=== PATIENT | male | born 1955 | race Hispanic/Latino ===

== ENCOUNTER 2024-01-14 14:46 | Observation (INO) | payer MEDICARE, OTHER, SELFPAY ==
[2024-01-14] VITALS (12 sets, daily range): BP systolic 140–196; BP diastolic 28–83; BMI 28.0
--- NOTE | 2024-01-14 10:28 | ED.GENMED ---
History of Present Illness
General
Chief Complaint: Headache
Source: patient and family
Exam Limitations: clinical condition
Time Seen by Provider: 01/14/24 10:13
Nursing documentation reviewed up to this point in time: agreed with
Travel History
Have you had any contact with someone who has COVID-19?: No
Do you have any symptoms of coronavirus? Fever > 100 degrees, chills, cough, shortness of breath, sore throat, loss of taste or smell, muscle aches, or headache?: No
History of Present Illness
History of Present Illness:
pt is a 68 y/o M with h/o valve replacement, cva with residual R facial droop and some dysarthria baseline, legally blind due to diabetic retinopathy
here with onset of mild headache around left eye and dizziness like the room is spinning that started this morning at 6 am when he woke up
the headache is 1/10. he did not take anything for it. he got up and tried to find the bathroom but looked disoriented. he can usuallyjust feel around (becuase of his blindness) and he gets around without a cane or a walker. but he was reaching
and seemingly dioriented which is unsual for him. he did feel nauseated and vomited on the way here in the car.
has not taken his meds today
cannot see anything chronically from L eye which is usually cloudy in appearance.
he has not had any numbness/tkingling/weakness to arms or legs, cp, sob, cough, fever, cold sypmtoms, neck stiffness, confusion.
pt takes eliquis
Past History
Past History
ED Past Medical History: CVA, HTN, Hypercholesterolemia and NIDDM
Social History
Tobacco: Non-smoker
Alcohol: None
Drug: None
Personal:
Living: with family
Review of Systems
Review of Systems
Allergies reviewed?: Yes
All Other Systems: Not applicable
Phy Exam
Physical Exam
Physical Exam:
GENERAL: Alert , in no apparent distress
HEAD: NCAT
RIGHT SIDED FACIAL DROOP, SOME SLURRED SPEECH
EYE: r pupil 3 mm reactive; left cornea very cloudy unable to visualize pupil
blind left eye
right eye with ability to see light only
NECK: Supple,full rom, nontender
ENT: o/p clr, mmm.
CARDIAC: Regular rate and rhythm . no edema
LUNGS: Clear breath sounds bilaterally, no acute respiratory distress, no wheezes/rales/rhonchi
ABDOMEN: Soft, without focal tenderness, no r/g, no cvat
NEUROLOGICAL: Alert and orientedx 4, R facial droop, some speech dysarhtira, 5/5 strength in UE/LE, sensation intact, romberg neg, neg pronator drift
SKIN: Warm and dry, skin intact.
MUSCULOSKELETAL: No edema, well perfused.
PSYCH: Normal and appropriate interaction.
Course
Orders/Labs/Results
Orders:
Orders
01/14/24 10:26
Electrocardiogram (*1) Urgent
Reason for Study: Vertigo / Dizzy
EKG- Treatment ONCE
0.9% Sodium Chloride 500 ml [Nss] 500 ml IV BOLUS
Metoclopramide [Reglan] 10 mg IV NOW STA
01/14/24 10:27
Meclizine [Antivert] 25 mg PO NOW STA
01/14/24 10:39
COVID-19 Antigen Urgent
Source: Nasal Swab
Complete Blood Count/With Diff Urgent
Comprehensive Metabolic Panel Urgent
01/14/24 11:11
CT Head W/o Iv Contrast Urgent
Comment:
Reason For Exam: left sided headache, dizziness, h/o cva;
Abnormal Lab Results
01/14/24
10:39
RBC 3.20 L 10^6/uL
(4.70-6.10)
Hgb 9.7 L g/dL
(13.0-18.0)
Hct 29.0 L %
(39.0-52.0)
MPV 11.7 H fL
(7.4-10.4)
BUN 56 H mg/dl
(9-20)
Creatinine 3.7 H mg/dL
(0.7-1.3)
Glucose 148 H mg/dl
(70-99)
01/14/24 10:39
01/14/24 10:39
Vital Signs
Initial and Last Documented VS:
Initial Vital Signs
Temp Pulse Resp BP Pulse Ox
98.8 F 60 17 196/60 99
01/14/24 10:01 01/14/24 10:01 01/14/24 10:01 01/14/24 10:01 01/14/24 10:01
Last Documented Vital Signs
Temp Pulse Resp BP Pulse Ox
98.8 F 66 16 155/54 98
01/14/24 10:01 01/14/24 12:45 01/14/24 12:45 01/14/24 12:05 01/14/24 12:45
MDM/Problems Addressed
Differential Diagnosis Includes:
vertigo, stroke, dissection
MDM/Problems Addressed:
68 y/oM from home; h/o cva r facial droop chronic, valve replacement on , ckd (cr 3), diabetic retinopathy and blind; here with onset of L sided headache adn room spinning dizziness this morning, vomit x 1; headache very mild but the
dizziness caused him to be ataxic, normaly he walks without walker, feels around for structures and doesn't need help but today was very disorieneted and ataxic;
questionnable nystagmus on exam, because of his blindness it really is difficult; R facial droop and some slurred speech but no other deficits; was hypertensive on arrival 170/80, ekg sinus; ct head shows small lacunar infarct thalamus; no bleed;
givne reglan and meclizine and pt is still unable to walk; neuro consulted - she did not believe that mri was necessary at this point but will cconsult.
*Critical Care Note
Total Time (30-74mins, 75-104mins- exclusive of procedures): Not Applicable
ED Attending Note
-
Portions of this chart may have been created with voice recognition software.� Occasional wrong word or��sound alike� substitutions may have occurred due to the inherent limitations of voice recognition software.
Discharge Plan
Departure
Patient Disposition: Admit
Date of Disposition: 01/14/24
Time of Disposition: 13:07
Admit to: Telemetry
Presentation/result/management discussed w/ accepting MD/DO: Hospitalist
Condition: Fair
Covid-19: Not Applicable
Discharge Problem:
Vertigo, Ataxia
Referrals:
Mari Velázquez MD [Family Provider] -
Interventions
Interventions:
*Risk Screen - Suicide Last Done: 01/14/24 11:03
*General Assessment Last Done: 01/14/24 11:01
*Neglect/Abuse Screening Last Done: 01/14/24 11:01
ED- Fall Risk Assessment Last Done: 01/14/24 11:13
*ED COVID-19 Vaccine History Last Done: 01/14/24 11:01
ED- Neurological Assessment Last Done: 01/14/24 11:13
[2024-01-14 10:48] LABS: % Basophils 0.4 % (0-2); % Immature Granulocytes 0.3 % (0-0.5); % Lymphocytes 21.7 % (20.5-51.1); % Monocytes 7.5 % (1.7-9.3); % Neutrophils 69.1 % (42.2-75.2); Absolute Eosinophils 0.1 10^3/uL (0-0.7); Absolute Lymphocytes 1.5 10^3/uL (1.2-3.4); Absolute Monocytes 0.5 10^3/uL (0.1-0.6); Absolute Neutrophils 4.8 10^3/uL (1.4-6.5); Hemoglobin 9.7 g/dL (13.0-18.0); Mean Corp Hgb Conc. 33.4 g/dL (33.0-37.0); Mean Corpuscular Hgb 30.3 pg (27.0-31.0); Mean Corpuscular Volume 90.6 fL (80.0-94.0); Mean Platelet Volume 11.7 fL (7.4-10.4); Nucleated Red Blood Cells % 0 % (-); Platelet Count 164 10^3/uL (130-400); Red Cell Dist. Width 13.6 % (11.5-14.5); White Blood Cell Count 6.9 10^3/uL (4.8-10.8)
[2024-01-14] MEDS: NSS 500 IV (10:51)
[2024-01-14] MEDS: REGLAN 10 MG IV (10:52)
[2024-01-14] MEDS: ANTIVERT 25 MG PO (10:52)
[2024-01-14 11:00] LABS: ALT (SGPT) 29 U/L (0-50); AST (SGOT) 29 U/L (17-59); Alkaline Phosphatase 68 U/L (38-126); Blood Urea Nitrogen 56 mg/dl (9-20); Carbon Dioxide 24 mmol/L (22-30); Chloride 106 mmol/L (98-107); Glucose 148 mg/dl (70-99); Potassium 3.8 mmol/L (3.5-5.1); Sodium 138 mmol/L (135-145); Total Bilirubin 0.8 mg/dl (0.2-1.3); Total Protein 6.8 g/dl (6.3-8.2); eGFR 17.16
[2024-01-14 11:07] LABS: COVID-19 Antigen Negative (Negative)
--- NOTE | 2024-01-14 13:41 | HPS.HSE ---
Family Physician
-
Family Physician: Mari Velázquez
Chief Complaint
-
dizziness, ataxia
History of Present Illness
The patient is a 68 yo male with PMH significant for prior stroke with residual right-sided facial droop, mitral valve repair annuloplasty 2016, on Eliquis and amiodarone, CKD stage 5, DM with retinopathy and blindness (now diet-controlled after
signficant weight loss per family), who presents to ED via car due to left-sided MENDOZA and dizziness, sensation of lower extremity weakness, inability to ambulate, room spinning this morning, felt like he could not stand up, started 6 am when he woke
up, MENDOZA 11/01 (currently improved after txt in ED), could not find bathroom due to disoriented, vomit x 1. Typically he gets around by feeling around, not using cane nor walker, blindness due to DM, left eye cloudy vision chronically. No CP, no SOB,
no LOC, no syncope, no numbness nor tingling, no other motor deficits. No abdominal pain, no fever, no dysuria.
ED txt: IV fluids NS 500 mL, Reglan 10 mg IV once, Antivert 25 mg PO once
Medical History
Past Medical History
Past Medical History: Reports Arrhythmia (on BB and amiodarone), CVA, HTN, Hypercholesterolemia, NIDDM, Renal Failure (CKD stage 5, sees Senior Product Manager affiliated with [facility] (no active plans for HD)) and Valvular Disease (Mitral valve repair)
Past Surgical History: Reports Cardiac (Mitral Valve Repair Annuloplasty 2016 [facility])
Social History
Tobacco: Non-smoker
Alcohol: None
Personal:
Living: With Family
Family History
Family History: Other (Emphysema-Mom)
Allergies / Home Medications
Allergies reflects when Allergies were last updated in [facility].
Home Medications with original date entered in [facility]
Allergy/Medication List:
Allergies
Allergy/AdvReac Type Severity Reaction Status Date / Time
No Known Allergies Allergy Unverified 01/14/24 10:00
Home Medications
amiodarone 200 mg tablet 200 mg PO DAILY 01/14/24
amlodipine 10 mg tablet 10 mg PO DAILY 01/14/24
apixaban 2.5 mg tablet (Eliquis) 2.5 mg PO BID 01/14/24
atorvastatin 40 mg tablet 40 mg PO DAILY 01/14/24
calcitriol 0.25 mcg capsule 0.25 mcg PO DAILY 01/14/24
cholecalciferol (vitamin D3) 25 mcg (1,000 unit) tablet (Vitamin D3) 25 mcg PO DAILY 01/14/24
hydralazine 100 mg tablet 100 mg PO BID 01/14/24
metoprolol tartrate 25 mg tablet 12.5 mg PO BID 01/14/24
Review of Systems
-
A 12 point ROS was completed and negative except as noted: Yes
Physical Exam
Vital Signs
Vital Signs
Temp Pulse Resp BP Pulse Ox
98.8 F 66 16 155/54 98
01/14/24 10:01 01/14/24 12:45 01/14/24 12:45 01/14/24 12:05 01/14/24 12:45
Physical Exam
General: Well Developed, Well Nourished, No Apparent Distress, Comfortable and Conversant
HEENT: NormoCephalic, Anicteric, Moist mucous membranes and Other (chronic right-facial droop, left eye cataracts, b/l blindness)
Respiratory: Clear
Cardiac: S1/S2, Regular Rhythm and Murmur
GI: Soft, Non Tender and Non Distended
Musculoskeletal: No Clubbing, No Cyanosis and No Edema
Skin: Warm and Dry
Neuro: No Motor Deficits and Other (right facial droop, chronic, normal motor strength b/l UE and LE)
Psych: Calm
Laboratory Results
-
01/14/24 10:39
01/14/24 10:39
Laboratory Results
Total Bilirubin 0.8 mg/dl (0.2-1.3) 01/14/24 10:39
AST 29 U/L (17-59) 01/14/24 10:39
ALT 29 U/L (0-50) 01/14/24 10:39
Alkaline Phosphatase 68 U/L (38-126) 01/14/24 10:39
Data Reviewed
-
Medical Tests (Nuc Med, Echo, EKG etc): Image Personally Visualized and interpreted and Report Reviewed by me (LAD, NSR, non-specific intra-ventricular conduction block)
Impression/Plan
-
IMPRESSION:
The patient is a 68 yo male with PMH significant for prior stroke with residual right-sided facial droop, valve replacement, on Eliquis, CKD stage 3, DM with retinopathy, who presents to ED via car due to left-sided MENDOZA and dizziness, sensation of
room spinning this morning started 6 am when he woke up, MENDOZA /, could not find bathroom due to disoriented, vomit x 1. Typically he gets around by feeling around, not using cane nor walker, left eye blindness/cloudy vision chronically. No CP, no
SOB, no LOC, no syncope, no numbness nor tingling, no other motor deficits. No abdominal pain, no fever, no dysuria.
ED txt: IV fluids NS 500 mL, Reglan 10 mg IV once, Antivert 25 mg PO once
#Concern fo Acute posterior CVA due to persistent ataxia, prior CVA, history of MR and MVR 2015, possible heart arrhythmia, at higher risk for recurrent neurovascular ischemia
-CT Head - �'There is no definite acute intracranial process. MRI would be much more sensitive in this regard and Tiny lacunar infarct left thalamus. Mild volume loss and mild leukoaraiosis, age-appropriate'
-Admit tele Observation status
-Neurology consultation appreciated
-Neuro-checks
-Cont Eliquis
-MRI brain, MRA head and neck pending
-consider echocardiogram
#CKD, stage 5, sees Nephrology OP affiliated with [facility]
-monitor laboratory
-continue current meds - calcitriol and Vit D3 - and avoid any nephrotoxic agents
#HTN, essential
-continue home meds BB, amlodipine, and Hydralazine
#HLD
-continue statin Atorvastatin 40 mg QHS
# Residual right-sided facial droop from prior CVA before 2015
-lacunar infarct noted
# Mitral valve repair annuloplasty 2015 at [facility]
-continue Eliquis 2.5 BID, Metoprolol 12.5 BID, and amiodarone 200 daily
# DM with retinopathy and blindness
-not on medications currently, monitor BMP daily for now, glucose 148 on arrival
DVT proph-Eliquis
Full Code
[2024-01-14] MEDS: ELIQUIS 2.5 MG PO ×2 (14:59→19:58)
[2024-01-14] MEDS: PACERONE 200 MG PO (14:59)
[2024-01-14] MEDS: NORVASC 10 MG PO (14:59)
--- NOTE | 2024-01-14 15:16 | CON.NEURO ---
Consultation
Order
Date of Consultation: 01/14/24
Reason for Consult: Dizziness
CC: Dizziness
HPI: This is a 68-year-old ambidextrous man who presented to [facility] on January 14, 2024 with dizziness.
According to the patient he woke up with intermittent positional sensation of dizziness (unable to specify whether its vertigo lightheadedness) was associated nausea, emesis and worsening of baseline imbalance that occurred upon awakening around 6
AM today. No reports of nausea, emesis, motor or sensory deficits. According to the family patient has been taking Eliquis regularly.
ED txt: IV fluids NS 500 mL, Reglan 10 mg IV once, Antivert 25 mg PO once
ER VS: 196/60, 60, afebrile.
PDMP: none
Labs: Glucose�148, creatinine�3.7, hemoglobin�9.7
CT head-chronic left thalamic infarct, atrophy
EKG: NSR, �QTc Int : 522 ms
PMH: stroke with residual R facial weakness, CAD, HTN, CKD, anemia, vit D deficiency
PSH: MVR(2016), L eye surgery,
SH: , remote smoker, no history excessive alcohol use; lives with family, retired, uses a walker, medication are being prepared by family; completed 9 grades
FH: Not contributory to current presentation
All:NKDA
ROS:Constitutional: Negative. Negative for chills, fever and unexpected weight change.
HENT: Positive for chronic hearing impairment, dizziness
Eyes: Positive for visual impairment
Respiratory: Negative for cough, choking and shortness of breath.
Cardiovascular: Negative for chest pain, palpitations and leg swelling.
Gastrointestinal: Negative for abdominal pain and vomiting.
Endocrine: Negative. Negative for cold intolerance.
Genitourinary: Negative for dysuria, flank pain and urgency.
Musculoskeletal: Negative for back pain, gait problem, neck pain and neck stiffness.
Skin: Negative for rash.
Allergic/Immunologic: Negative. Negative for immunocompromised state.
Neurological: Positive for chronic tingling in the feet, imbalance
Psychiatric/Behavioral: Negative for behavioral problems, confusion and hallucinations.
General: Well developed. In no acute distress.
Cardio: Regular rate and rhythm without murmur. Extremities are without cyanosis or edema.
Neuro:
Mental Status: Alert, oriented to person, place, and date. Impaired attention and recall. Good fund of knowledge. Follows complex requests across the midline. Comprehension, naming, and repetition intact. Immediate and delayed recall 3/3.
Cranial Nerves: OD surgical, left eye opacification. No light perception on the L. EOMI on the R. Sustained nystagmus on the left lateral gaze on the R. Visual bunn full to confrontation on the R. No ptosis. R LMN weakness. Poor hearing AU.
[place] lateralizes to the to the left. Palate elevated well. SCMs and traps 5/5. Tongue midline. Mild dysarthria.
Motor: Normal bulk and tone. No pronator or arm drift. Strength 5/5 throughout. No clonus.
Reflexes: 0+ throughout the upper extremities and knees. 0/2 in AJs. Plantar responses flexor bilaterally.
Sensory: Absent vibration at the toes and ankles
Coordination: No dysmetria or tremor.
Gait: deferred
Assessment and Plan:
I. Peripheral vertigo
II. 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
III. Chronic left thalamic infarct
IV. Multifactorial ambulatory dysfunction
-Fall precautions
-ENT eval
-Meclizine 25 mg every 8 hours as needed
-PT
-Continue Eliquis 2.5 mg twice daily
-Blood pressure control
-Further evaluation will depend on clinical course
I personally reviewed all radiology and labs along with past medical records pertinent to current medical problems. Total time spent in patient care is 60 minutes.
Thank you for allowing us to participate in the care of this patient. We will continue to follow. Please do not hesitate to contact us with any questions or concerns.
Subjective/Objective
Subjective Data
Date of Service: January 14, 2024
Objective Data
Vital Signs
Temp Pulse Resp BP Pulse Ox
37.1 C 64 13 140/83 94
01/14/24 10:01 01/14/24 15:00 01/14/24 15:00 01/14/24 15:00 01/14/24 15:00
Lab Results
01/14/24 10:39
01/14/24 10:39
Sodium 138 mmol/L (135-145) 01/14/24 10:39
Potassium 3.8 mmol/L (3.5-5.1) 01/14/24 10:39
BUN 56 mg/dl (9-20) H 01/14/24 10:39
Glucose 148 mg/dl (70-99) H 01/14/24 10:39
Calcium 10.0 mg/dl (8.4-10.2) 01/14/24 10:39
Patient Allergies
No Known Allergies Allergy (Unverified 01/14/24 10:00)
Medications
-
Active Medications
Generic Name Dose Route Start Last Admin
Trade Name Freq PRN Reason Stop Dose Admin
Amiodarone HCl 200 mg 01/14/24 15:00 01/14/24 14:59
Amiodarone 200 Mg Tablet PO 02/11/24 14:59 200 mg
DAILY NESSA Administration
Amlodipine Besylate 10 mg 01/14/24 15:00 01/14/24 14:59
Amlodipine 10 Mg Tablet PO 02/11/24 14:59 10 mg
DAILY NESSA Administration
Apixaban 2.5 mg 01/14/24 14:27 01/14/24 14:59
Apixaban (Eliquis) 2.5 Mg Tablet PO 02/11/24 14:26 2.5 mg
BID NESSA Administration
Home Medications
Medication Instructions Recorded
amiodarone 200 mg tablet 200 mg PO DAILY 01/14/24
amlodipine 10 mg tablet 10 mg PO DAILY 01/14/24
apixaban 2.5 mg tablet (Eliquis) 2.5 mg PO BID 01/14/24
atorvastatin 40 mg tablet 40 mg PO DAILY 01/14/24
calcitriol 0.25 mcg capsule 0.25 mcg PO DAILY 01/14/24
cholecalciferol (vitamin D3) 25 25 mcg PO DAILY 01/14/24
mcg (1,000 unit) tablet (Vitamin
D3)
hydralazine 100 mg tablet 100 mg PO BID 01/14/24
metoprolol tartrate 25 mg tablet 12.5 mg PO BID 01/14/24
Vital Signs and Labs
-
Vital Signs and Labs:
Vital Signs
Temp Pulse Resp BP Pulse Ox
37.1 C 64 13 140/83 94
01/14/24 10:01 01/14/24 15:00 01/14/24 15:00 01/14/24 15:00 01/14/24 15:00
Lab Results
01/14/24 10:39
01/14/24 10:39
Sodium 138 mmol/L (135-145) 01/14/24 10:39
Potassium 3.8 mmol/L (3.5-5.1) 01/14/24 10:39
BUN 56 mg/dl (9-20) H 01/14/24 10:39
Glucose 148 mg/dl (70-99) H 01/14/24 10:39
Calcium 10.0 mg/dl (8.4-10.2) 01/14/24 10:39
Home Medications
-
Home Medications
amiodarone 200 mg tablet 200 mg PO DAILY 01/14/24
amlodipine 10 mg tablet 10 mg PO DAILY 01/14/24
apixaban 2.5 mg tablet (Eliquis) 2.5 mg PO BID 01/14/24
atorvastatin 40 mg tablet 40 mg PO DAILY 01/14/24
calcitriol 0.25 mcg capsule 0.25 mcg PO DAILY 01/14/24
cholecalciferol (vitamin D3) 25 mcg (1,000 unit) tablet (Vitamin D3) 25 mcg PO DAILY 01/14/24
hydralazine 100 mg tablet 100 mg PO BID 01/14/24
metoprolol tartrate 25 mg tablet 12.5 mg PO BID 01/14/24
Medications
-
Medications:
Generic Name Dose Route Start Last Admin
Trade Name Freq PRN Reason Stop Dose Admin
Amiodarone HCl 200 mg 01/14/24 15:00 01/14/24 14:59
Amiodarone 200 Mg Tablet PO 02/11/24 14:59 200 mg
DAILY NESSA Administration
Amlodipine Besylate 10 mg 01/14/24 15:00 01/14/24 14:59
Amlodipine 10 Mg Tablet PO 02/11/24 14:59 10 mg
DAILY NESSA Administration
Apixaban 2.5 mg 01/14/24 14:27 01/14/24 14:59
Apixaban (Eliquis) 2.5 Mg Tablet PO 02/11/24 14:26 2.5 mg
BID NESSA Administration
[2024-01-14 15:48] LABS: TSH 4.98 uIU/ml (0.47-4.68)
[2024-01-14 18:13] LABS: Urine Albumin 2+ (Neg - Trace); Urine Bilirubin Negative (Negative); Urine Character Clear (Clear); Urine Color Yellow; Urine Glucose Trace (Negative); Urine Ketone Negative (Negative); Urine Leukocyte Negative (Negative); Urine Nitrite Negative (Negative); Urine Occult Blood Negative (Negative); Urine Specific Gravity 1.015 (<1.030); Urine Urobilinogen Negative (Neg - 1+)
[2024-01-14 18:30] LABS: Urine Bacteria Few (Negative); Urine Mucus Moderate; Urine Red Blood Cell 0-2 /HPF (0-2)
[2024-01-14] MEDS: APRESOLINE 100 MG PO (19:58)
[2024-01-14] MEDS: LIPITOR 40 MG PO (19:58)
[2024-01-14] MEDS: LOPRESSOR 12.5 MG PO (19:59)
[2024-01-15 03:20] VITALS: BP 144/70
[2024-01-15 07:30] VITALS: BP 173/60
[2024-01-15] MEDS: NORVASC 10 MG PO (07:49)
[2024-01-15] MEDS: PACERONE 200 MG PO (07:49)
[2024-01-15] MEDS: ELIQUIS 2.5 MG PO (07:49)
[2024-01-15] MEDS: APRESOLINE 100 MG PO (07:50)
[2024-01-15] MEDS: VITAMIN D3 (cholecalciferol) 25 MCG PO (07:50)
[2024-01-15] MEDS: ROCALTROL 0.25 MCG PO (07:50)
[2024-01-15] MEDS: LOPRESSOR 12.5 MG PO (07:50)
[2024-01-15] MEDS: LIPITOR 40 MG PO (07:51)
--- NOTE | 2024-01-15 08:38 | W.PN.HOSP.TC ---
Today's Communication/Plan
-
Discharge today
Assessment / Plan
Assessment / Plan
Physical Exam
General: Not in acute distress
HEENT: Normocephalic, Anicteric, Moist mucous membranes and Other (chronic right-facial droop, left eye cataracts, b/l blindness)
Respiratory: Clear to auscultation bilaterally
Cardiac: S1/S2, Regular Rhythm and Murmur
GI: Soft, Non Tender and Non Distended. Positive bowel sounds.
Musculoskeletal: No Cyanosis and No Edema
Skin: Warm and Dry
Neuro: AAOx3. No Motor Deficits and Other (right facial droop, chronic, normal motor strength bilateral UE and LE)
Psych: Calm

IMPRESSION:
The patient is a 68 yo male with PMH significant for prior stroke with residual right-sided facial droop, valve replacement, on Eliquis, CKD stage 3, DM with retinopathy, who presents to ED via car due to left-sided MENDOZA and dizziness, sensation of
room spinning this morning started 6 am when he woke up, MENDOZA 1/10, could not find bathroom due to disoriented, vomit x 1. Typically he gets around by feeling around, not using cane nor walker, left eye blindness/cloudy vision chronically. No CP, no
SOB, no LOC, no syncope, no numbness nor tingling, no other motor deficits. No abdominal pain, no fever, no dysuria.�
ED treatment: IV fluids NS 500 mL, Reglan 10 mg IV once, Antivert 25 mg PO once
#Acute onset left-sided MENDOZA/dizziness, room spinning, vomiting x 1, persistent ataxia -- RESOLVED
#Peripheral vertigo -- RESOLVED
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
#Concern for Acute posterior CVA due to persistent ataxia, prior CVA, history of MR and MVR 2016, possible heart arrhythmia, at higher risk for recurrent neurovascular ischemia
#Chronic Right Facial Droop
#Chronic left thalamic infarct
#Multifactorial ambulatory dysfunction
-CT Head - �'There is no definite acute intracranial process. MRI would be much more sensitive in this regard and Tiny lacunar infarct left thalamus. Mild volume loss and mild leukoaraiosis, age-appropriate'
-Neurology consultation appreciated: okay to discharge today as per neurology
-Continue Eliquis 2.5 mg twice daily
-Fall precautions
-ENT eval outpatient
-Meclizine 25 mg every 8 hours as needed
-PT
-Blood pressure control
-Further evaluation will depend on clinical course
#CKD, stage 5, sees Nephrology OP affiliated with [facility]
-monitor laboratory
-continue current meds - calcitriol and Vit D3 -� and avoid any nephrotoxic agents
-Follow-up outpatient
#HTN, essential
-continue home meds BB, amlodipine, and Hydralazine
-Low sodium diet
-Follow-up closely with PCP outpatient
#HLD
-continue statin Atorvastatin 40 mg QHS
# Residual right-sided facial droop from prior CVA before 2016
-lacunar infarct noted
# Mitral valve repair annuloplasty 2016 at [facility]
-continue Eliquis 2.5 BID, Metoprolol 12.5 BID,� and amiodarone 200 daily
# DM with retinopathy and blindness
-not on medications currently, monitor BMP daily for now, glucose 148 on arrival
DVT prophylaxis-Eliquis
Full Code
More than 30 minutes spent in discharge including
Final examination of the patient
Summarizing hospital stay
Instructions for continuing care to all relevant caregivers
Preparation of discharge records, prescriptions, and referral forms
Total time spent (in minutes): 39
Anticipated Discharge: Today
Subjective/Interval History
-
Date of Service: January 15, 2024
Patient was seen and examined. He reports that all of his presenting symptoms, including dizziness and weakness have resolved. He wants to go home today.
Objective Data
-
Labs:
Laboratory Results
01/15/24
08:23
WBC Pending
Hgb Pending
Hct Pending
Plt Count Pending
PT Pending
INR Pending
Vital Signs:
Vital Signs
Temp Pulse Resp BP Pulse Ox
98.6 F 56 18 173/60 95
01/15/24 07:30 01/15/24 07:30 01/15/24 07:30 01/15/24 07:30 01/15/24 07:30
I&O
01/14/24 01/15/24 01/16/24
06:59 06:59 06:59
Intake Total 120 / 120
Output Total 700 / 700
Balance -580 / -580
[2024-01-15 08:57] LABS: INR 1.32; PT 16.2 Sec (11.4-14.6)
[2024-01-15 09:00] LABS: Hemoglobin 9.4 g/dL (13.0-18.0); Mean Corp Hgb Conc. 33.6 g/dL (33.0-37.0); Mean Corpuscular Hgb 30.2 pg (27.0-31.0); Platelet Count 159 10^3/uL (130-400); Red Blood Cell Count 3.11 10^6/uL (4.70-6.10); Red Cell Dist. Width 13.7 % (11.5-14.5); White Blood Cell Count 8.1 10^3/uL (4.8-10.8)
[2024-01-15 09:05] VITALS: BP 176/66; BP 183/63; PULSE 60; O2SAT 97
[2024-01-15 09:23] LABS: HDL Cholesterol 64 mg/dl; LDL Cholesterol, Calculated 59 mg/dl; Magnesium 2.2 mg/dl (1.6-2.3); Total Cholesterol 132 mg/dl (50-199); Triglyceride 49 mg/dl (10-149); Very Low Density Lipoprotein 9 mg/dl (0-30)
[2024-01-15 11:15] VITALS: BP 171/46
--- NOTE | 2024-01-15 12:07 | PTOTSP ---
SPEECH THERAPY SPEECH/LANGUAGE/COGNITIVE COMMUNICATION AND SWALLOWING EVALUATION:
Patient presents with clinical signs of oral dysphagia, likely chronic related to prior CVA, and possible acutely exacerbated by potential acute CVA though MRI still pending; Suspect pharyngeal swallow function grossly WFL at this time. Exhibiting
no signs or symptoms of aspiration at this time. Patient remains at risk for aspiration given possible acute CVA and impulsivity. Recommend continue Regular texture diet, thin liquids. Medications whole with liquid as tolerated. Aspiration
precautions including: Upright positioning; Small single sips/bites; Slow rate of intake; Assist with set-up and supervision with meals to ensure slow rate of intake; Check for pocketing on Right. Discontinue oral diet and re-consult ST if signs or
symptoms of aspiration. Speech therapy to follow, assess diet tolerance and modify as appropriate, provide education regarding aspiration risks/precautions, monitory CXR and labs, and provide continued diagnostic treatment as appropriate.
Patient presents with mild speech, receptive/expressive language, and cognitive communication impairments characterized by: Reduced STM, Impulsivity, Reduced judgement, mild dysarthria, word finding difficulties, reduced ability to follow complex
directions. Assessment limited given unclear role of baseline prior level given past CVA, along with language barrier from patient blingual Citizen [place]/F[place]ian (though patient reported he is fluent in [place] and requested evaluation in [place]).
Patient reporting he feels he is at baseline level of functioning for speech/language/cognitive communication skills and swallowing function at this time. Recommend trial ST services with continued assessment of patient's previous and current
speech/language skills, along with review of pending MRI results when available. If MRI is negative for acute process, patient is likely at baseline level of functioning at this time.
RECOMMEND:
1) Regular texture diet, thin liquids
2) Medications whole with liquid as tolerated
3) Aspiration precautions including: Upright positioning; Small single sips/bites; Slow rate of intake; Assist with set-up and supervision with meals to ensure slow rate of intake; Check for pocketing on Right
4) Discontinue oral diet and re-consult ST if signs or symptoms of aspiration
5) Speech therapy to follow, assess diet tolerance and modify as appropriate, provide education regarding aspiration risks/precautions, monitory CXR and labs, and provide continued diagnostic treatment as appropriate
6) Trial ST services for speech, expressive/receptive language and cognitive communication impairments with continued assessment of patient's previous and current speech/language skills, along with review of pending MRI results when available. If
MRI is negative for acute process, patient is likely at baseline level of functioning at this time
[2024-01-15 14:30] VITALS: BP 173/71
--- NOTE | 2024-01-15 15:50 | W.DS.TRANS ---
DC Summary - Rental Coordinator
-
Discharge Instructions:
Discharge Diagnosis/Procedures #Acute onset left-sided headache/dizziness, room
spinning, vomiting x 1, persistent ataxia --
RESOLVED
#Peripheral vertigo -- RESOLVED
#Distal symmetric large fiber polyneuropathy
affecting lower extremity
#Concern for Acute posterior stroke due to
persistent ataxia, prior stroke, history of MR
and MVR 2016, possible heart arrhythmia, at
higher risk for recurrent neurovascular ischemia
#Chronic Right Facial Droop
#Chronic left thalamic infarct
#Multifactorial ambulatory dysfunction
#Chronic Kidney Disease stage 5 -- patient sees
Nephrology OP affiliated with [facility]
#Hypertension, essential
#Hyperlipidemia
#Residual right-sided facial droop from prior
CVA before 2016
#Mitral valve repair annuloplasty 2016 at
[facility]
#Diabetes Mellitus with retinopathy and
blindness
Diet Low Sodium,Other diet
Additional Diets Also: thin liquids (as recommended by Speech
Therapist)
Driving Restrictions No driving
Instructions: Vertigo (a type of dizziness)
High blood pressure in adults
DASH Diet
High Blood Pressure (DC)
Vertigo (a Type of Dizziness) (DC)
Low Salt Diet
High blood pressure emergencies
Meclizine
Lowering Your Risk of High Blood Pressure
Stand-Alone Forms:
Changes to Home Medications: Yes
Discharge Medications:
DC Medications w/original date entered in [facility]
amiodarone 200 mg tablet 200 mg PO DAILY Arrhythmia 01/14/24
amlodipine 10 mg tablet 10 mg PO DAILY Blood Pressure 01/14/24
apixaban 2.5 mg tablet (Eliquis) 2.5 mg PO BID Blood Clot Prevention/Tx 01/14/24
atorvastatin 40 mg tablet 40 mg PO DAILY High Cholesterol 01/14/24
calcitriol 0.25 mcg capsule 0.25 mcg PO DAILY Supplement 01/14/24
cholecalciferol (vitamin D3) 25 mcg (1,000 unit) tablet (Vitamin D3) 25 mcg PO DAILY Supplement 01/14/24
hydralazine 100 mg tablet 100 mg PO BID Blood Pressure 01/14/24
metoprolol tartrate 25 mg tablet 12.5 mg PO BID Blood Pressure 01/14/24
meclizine 25 mg tablet 25 mg PO Q8HPRN PRN dizziness #20 tabs 01/15/24
Home Medication Changes
PRN Meclizine is a new medication.
Pending Results: No
Total time spent discharging patient (in min): 39
--- NOTE | 2024-01-15 15:51 | CM ---
Reviewed chart, met with patient and his who was at bedside to obtain information for assessment. Patient's stated that patient lives with her and their son in a one story [facility] with 4 steps to enter.
Patient described himself as independent with his ADLs, personal care, dressing, bathing and ambulation. 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
Patient's spouse has never had VN services. He has never been to a SNF.
His PCP is Dr. Mari Velázquez
He has a prescription plan and uses the [facility] in [place] for all of his medications.
Patient would like to return home when he is medically stable.
[place] letter provided, signed and on chart.
Plan: Case management will continue to follow and assist with discharge planning. Home when stable.
--- NOTE | 2024-01-18 09:20 | W.DCSUMMARY ---
Discharge Summary
Discharge Data
Date of Admission: 01/14/24
Date of Discharge: 01/15/24
Total time spent discharging patient (in min): 39
-
Pending Results: No
Hospital Course
68 y/o male with past medical history significant for prior stroke with residual right-sided facial droop, mitral valve repair annuloplasty 2016, on Eliquis and amiodarone, chronic kidney disease stage 5, DM with retinopathy and blindness (now
diet-controlled after significant weight loss per family), who presented to the [facility] Room via car due to left-sided headache and dizziness, sensation of lower extremity weakness, inability to ambulate, room spinning this
morning, felt like he could not stand up, started 6 am when he woke up, headache, and inability to find bathroom due to disorientation, as well as vomiting. CT Head was performed and neurology was consulted. CT Head showed chronic left thalamic
infarct and atrophy, as per neurology. Neurology's impression was that patient had peripheral vertigo, distal symmetric large fiber polyneuropathy affecting lower extremity, chronic left thalamic infarct and multifactorial ambulatory dysfunction.
Patient was continued on Eliquis. His blood pressure improved. His dizziness and weakness, and all of his symptoms, resolved, according to him. He was stable for discharge with close outpatient follow-up.
Discharge Plan
-
Patient Disposition: Home (Routine Discharge)
Discharge Diagnosis/Procedures: #Acute onset left-sided headache/dizziness, room spinning, vomiting x 1, persistent ataxia -- RESOLVED
#Peripheral vertigo -- RESOLVED
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
#Concern for Acute posterior stroke due to persistent ataxia, prior stroke, history of MR and MVR 2016, possible heart arrhythmia, at higher risk for recurrent neurovascular ischemia
#Chronic Right Facial Droop
#Chronic left thalamic infarct
#Multifactorial ambulatory dysfunction
#Chronic Kidney Disease stage 5 -- patient sees Nephrology OP affiliated with [facility]
#Hypertension, essential
#Hyperlipidemia
#Residual right-sided facial droop from prior CVA before 2016
#Mitral valve repair annuloplasty 2016 at [place]
#Diabetes Mellitus with retinopathy and blindness
Diet: Low Sodium and Other diet
Additional Diets: Also: thin liquids (as recommended by Speech Therapist)
Driving Restrictions: No driving
Instructions: Vertigo (a type of dizziness), High blood pressure in adults, DASH Diet, High Blood Pressure (DC), Vertigo (a Type of Dizziness) (DC), Low Salt Diet, High blood pressure emergencies, Meclizine, Lowering Your Risk of High Blood Pressure
Referrals:
Kendy Arellano CRNP [Specified Professional Personl] - in one to two weeks (Vertigo follow-up)
Mari Velázquez MD [Family Provider] - in less than 1 week
Thompson Tate MD [Active] - in two to four weeks (Vertigo)
Additional Discharge Medication Instructions: Meclizine is a new medication.
Prescriptions:
New
meclizine 25 mg tablet
25 mg PO Q8HPRN PRN (Reason: dizziness) Qty: 20 0RF
Continued
atorvastatin 40 mg Tablet
40 mg PO DAILY
amiodarone 200 mg Tablet
200 mg PO DAILY
amlodipine 10 mg Tablet
10 mg PO DAILY
hydralazine 100 mg Tablet
100 mg PO BID
calcitriol 0.25 mcg Capsule
0.25 mcg PO DAILY
metoprolol tartrate 25 mg Tablet
12.5 mg PO BID
cholecalciferol (vitamin D3) [Vitamin D3] 25 mcg (1,000 unit) Tablet
25 mcg PO DAILY
Eliquis 2.5 mg Tablet
2.5 mg PO BID
Discharge Orders:
Discharge Patient (As Directed); Ordered 01/15/24
Ordered By: Cem Delarosa
Discharge Date and Time
Discharge Date/Time: 01/15/24 16:47
Print Language: TURKISH
== END 2024-01-15 16:47 | disposition home or self-care (01) ==
LOC: 4 WEST ACU 14:46
PROVIDERS: Physician Assistant; ADMITTING PHYSICIAN Internal Medicine; ATTENDING PHYSICIAN Hospitalist; CONSULT PHYSICIAN Psychiatry & Neurology Neurology; EMERGENCY PHYSICIAN Emergency Medicine; FAMILY PHYSICIAN Family Medicine
DX: R51.9 Headache, unspecified (principal); H81.399 Other peripheral vertigo, unspecified ear; R11.2 Nausea with vomiting, unspecified; R47.81 Slurred speech; H55.00 Unspecified nystagmus; I12.0 Hypertensive chronic kidney disease with stage 5 chronic kidney disease or end stage renal disease; R27.0 Ataxia, unspecified; E11.319 Type 2 diabetes mellitus with unspecified diabetic retinopathy without macular edema; E11.22 Type 2 diabetes mellitus with diabetic chronic kidney disease; R41.0 Disorientation, unspecified; H54.8 Legal blindness, as defined in USA; I69.392 Facial weakness following cerebral infarction; E11.40 Type 2 diabetes mellitus with diabetic neuropathy, unspecified; N18.5 Chronic kidney disease, stage 5; I25.10 Atherosclerotic heart disease of native coronary artery without angina pectoris; Z87.891 Personal history of nicotine dependence; Z95.2 Presence of prosthetic heart valve; Z11.52 Encounter for screening for COVID-19; Z79.01 Long term (current) use of anticoagulants
CPT/HCPCS: 70450; 80053; 80061; 81003; 81015; 83735; 84443; 85025; 85027; 85610; 87811; 92523; 92610; 93005; 96361; 96374; 97162; 97166; 99285; G0378